=== PATIENT | male | born 1965 | race Caucasian/White ===

== ENCOUNTER 2019-09-08 09:53 | Outpatient (CLI) | payer OTHER ==
--- NOTE | 2019-09-08 13:16 | ULT ---
GALLBLADDER ULTRASOUND: Date: 09/08/19 HISTORY: Epigastric pain. FINDINGS: The liver, pancreas, and right kidney appear normal. There is a 6 mm nonshadowing echogenic focus rosy sing from the wall of the gallbladder without mobility, consistent with gallbladder polyp. No shadowi ng gallstones, gallbladder wall thickening, or pericholecystic fluid is seen. The common duct measure s 4.0 mm in diameter. No free fluid is seen in Morison's pouch. IMPRESSION: 6.0 mm gallbladder polyp. Surgical consultation is recommended. POS: [facility]
== END 2019-09-08 09:54 | disposition home or self-care (01) ==
LOC: BICULT 09:53
PROVIDERS: ATTEND Internal Medicine Gastroenterology
DX: R10.13 Epigastric pain (principal); K82.4 Cholesterolosis of gallbladder
CPT/HCPCS: 76705